=== PATIENT | male | born 1965 ===

== ENCOUNTER 2019-05-30 08:29 | Day surgery (SDC) | payer BC ==
[~2019-05-30] VITALS: Ht 193 cm; Wt 102.5 kg
--- NOTE | 2019-05-30 10:15 | NUR ---
Ambulatory in Day Surgery. History, Chart, Medications and Allergies reviewed before start of procedure. Lungs clear T/O to Auscultation. Patient confirms NPO status and agrees with scheduled surgery. Pre-Op teaching done. Pt verbalizes understanding. Patient States Post-Procedure ride home has been arranged. Patient reports completing Chlorhexadine shower X2 prior to admission to hospital.
--- NOTE | 2019-05-30 15:17 | NUR ---
Discharge instructions reviewed with patient. Patient verbalizes understanding. Copy given to patient to take home. Patient up to Ambulate independently. Gait steady. WAITING FOR TO FINISH FILLING RX. CALLED AND STATED SHE IS ON HER WAY.
--- NOTE | 2019-05-30 15:40 | NUR ---
Discharged via wheelchair to private car for ride home.
--- NOTE | 2019-06-02 14:07 | NUR ---
06/02/19 1407 [address] VERIFICATIONS: EDIT CHART.
== END 2019-05-30 15:43 | disposition home or self-care (01) ==
LOC: ORSCMMR 08:29 → ORD 10:30 → ORSCMMR 15:43
PROVIDERS: Surgery
PROC: 0WUF0JZ Supplement Abdominal Wall with Synthetic Substitute, Open Approach (ICD-10-PCS; principal; 2019-05-30 10:30)
DX: K42.9 Umbilical hernia without obstruction or gangrene (principal); F17.210 Nicotine dependence, cigarettes, uncomplicated
CPT/HCPCS: A9270-GY; C1781; J0690; J1100; J1885; J2405; J2704; J2710; J3010; J7120